=== PATIENT | male | born 1995 | race Hispanic/Latino ===

== ENCOUNTER 2019-04-18 10:16 | Emergency (ER) | payer MEDICAID, OTHER ==
[2019-04-18] MEDS ORDERED: LIDOCAINE HCL-MPF 1% 2ML VIAL ONE (10:38)
[2019-04-18] MEDS ORDERED: CEFTRIAXONE SODIUM 500 MG VIAL ONE (10:38)
[2019-04-18] MEDS ORDERED: AZITHROMYCIN 250 MG TABLET PO ONE (10:39)
[2019-04-18 10:59] LABS: APPEARANCE,URINE Clear (CLEAR); BILIRUBIN,URINE Negative (NEGATIVE); COLOR,URINE Yellow (YELLOW); GLUCOSE, URINE (UA) Negative (NEGATIVE); KETONES,URINE Negative (NEGATIVE); LEUKOCYTE ESTERASE ,URINE Moderate (NEGATIVE); NITRATE,URINE Negative (NEGATIVE); OCCULT BLOOD,URINE Negative (NEGATIVE); PH,URINE 5.5 (5.0-8.0); PROTEIN,URINE Trace mg/dL (NEGATIVE)
[2019-04-18 11:39] LABS: BACTERIA,URINE Few /HPF (None Seen); RBC,URINE 0-1 /HPF (0-1); SQUAMOUS EPITHELIAL CELL,UR Rare /HPF (0-2); WBC,URINE >100 /HPF (0-1)
[2019-04-18 11:40] LABS: CALCIUM OXALATE CRYSTALS,UR Few /LPF (None Seen)
== END 2019-04-18 11:44 | disposition home or self-care (01) ==
LOC: EDH 10:16
DX: N34.2 Other urethritis (principal)
CPT/HCPCS: 81001; 87486; 87797; 96372; 99284; J0696; J3490

== ENCOUNTER 2022-06-02 00:41 | Emergency (ER) | payer OTHER ==
[~2022-06-02] VITALS: Ht 162.6 cm; Wt 77.1 kg
[2022-06-02] MEDS ORDERED: ONDANSETRON ODT 4MG TAB SL ONE (01:00)
[2022-06-02] MEDS ORDERED: ACETAMINOPHEN 500 MG TABLET PO ONE (01:00)
[2022-06-02 01:55] LABS: BASOPHILS % (AUTO) 0.6 % (0.0-5.0); HEMATOCRIT 34.9 % (42-54); LYMPHOCYTES % (AUTO) 14.8 % (21.0-51.0); MEAN CORPUSCULAR HEMOGLOBIN 29.3 pg (27.0-33.0); MEAN CORPUSCULAR HGB CONC 36.4 g/dL (32.0-36.0); MEAN CORPUSCULAR VOLUME 80.6 fL (79-99); MONOCYTES % (AUTO) 5.8 % (3.0-13.0); NEUTROPHILS % (AUTO) 78.5 % (40.0-77.0); PLATELET COUNT (AUTO) 83 K/uL (130-400); RED BLOOD CELL COUNT(AUTO) 4.33 MIL/uL (4.50-6.20); RED CELL DISTRIBUTION WIDTH 11.9 % (11.0-15.5); WHITE BLOOD COUNT (AUTO) 3.1 K/uL (4.8-10.8)
[2022-06-02 02:03] LABS: POTASSIUM 3.1 mmol/L (3.5-5.1)
[2022-06-02 02:07] LABS: ALBUMIN 3.4 g/dL (3.5-5.0); TOTAL PROTEIN, SERUM 6.7 g/dL (6.0-8.3)
[2022-06-02] MEDS ORDERED: IBUP-1493 PO (03:23)
[2022-06-02] MEDS ORDERED: ONDA-104 PO (03:23)
[2022-06-02 03:35] VITALS: BP 110/59
== END 2022-06-02 03:38 | disposition home or self-care (01) ==
LOC: EDH 00:41
DX: B34.9 Viral infection, unspecified (principal); Z20.822 Contact with and (suspected) exposure to COVID-19
CPT/HCPCS: 99284; 70450; 87635; 80053; 85025; 87804 ×2; 36415; C9803